=== PATIENT | male | born 1945 | race Caucasian/White ===

== ENCOUNTER 2017-02-26 12:40 | Emergency (ER) | payer OTHER ==
[~2017-02-26] VITALS: Ht 172.7 cm; Wt 82.8 kg
[~2017-02-26 12:40] MED LIST: ECO81 PO; LIPI10 PO; ZES5 PO
[2017-02-26 13:07] VITALS: BP 122/90
== END 2017-02-26 14:31 | disposition home or self-care (01) ==
LOC: ED 12:40
DX: I10 Essential (primary) hypertension (principal); E78.00 Pure hypercholesterolemia, unspecified; Z86.73 Personal history of transient ischemic attack (TIA), and cerebral infarction without residual deficits